=== PATIENT | male | born 1985 ===

== ENCOUNTER 2019-08-07 07:01 | Outpatient (CLI) | payer OTHER, SELFPAY ==
--- NOTE | 2019-08-29 12:18 | SLEEP_ITS ---
Split night sleep study. DATE OF STUDY: 08/07/2019 ORDERING PHYSICIAN: Dr. Tim Espinoza. REASON FOR THIS STUDY: Constant loud snoring, nonrestorative sleep. HISTORY: The patient is a 33-year-old male, 69 inches tall, weighing 215 pounds with a body mass index of 31.7. He has a history of very loud snoring, waking up at night coughing and not feeling rest in the morning. This has been going on for years, but getting worse recently. He has tried [id number]-xug-braemey nasal strips and nasal sprays without improvement. His constant snoring is loud enough that others constantly complain about it. He occasionally awakens from sleep with heartburn and belching. There is a family history with his father having very loud snoring. He rarely has trouble sleeping with a cold. He occasionally gasps for breath at night. He rarely has breathing problems reported to him by others. He frequently sweats excessively at night. He does not notice his heart pounding irregularly at night. He rarely falls asleep during the day never involuntarily, and never while driving. He does not have loss of muscle tone with strong emotion. He does not have daytime difficulties due to excessive sleepiness. 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 He occasionally feels paralyzed on waking or falling asleep and occasionally has vivid dreamlike scenes upon awakening or falling asleep. He is never afraid to go to sleep. He occasionally has nightmares and occasionally remembers his dreams. He rarely has racing thoughts. He rarely feels sad or depressed. He frequently feels anxious. He rarely has muscular tension and rarely notices parts of his body jerking. He rarely kicks at night. He does not have crawly achy feeling in his legs. He occasionally has leg pain at night. He does not have morning jaw pain and does not grind his teeth during sleep. He is not bothered by pain during the day or at night. He occasionally wakes up feeling stiff in the morning. He does not wake up with sore or achy muscles. He rarely wakes up with pain in the neck and spine. He goes to bed at midnight and it varies, how long it takes him to fall asleep, depending on how tired he is. He typically wakes up 2-5 times at night to use the bathroom, change sleeping position and will go back to sleep. He wakes up at 08:00 a.m. Weekend schedule is the same. He does not take naps. A short nap is not refreshing. He feels better in the evening than in the morning. MEDICAL COMORBIDITIES: No chronic medical comorbidities. MEDICATIONS: No chronic medications. HABITS: Tobacco quit 2 years ago. Caffeine, 2 to 3 per day. Alcohol daily, the amount varies. DESCRIPTION OF THE STUDY: On the [place] Sleepiness Scale his score is 4. This was conducted as a split night in-lab study using the B[employer]fer multiple channel system including EOG, EEG, submental EMG, EKG, nasal and oral airflow using thermistors and nasal pressure sensors, chest and abdominal belts, body position data and pulse oximetry. The study was scored using CMS guidelines. During the baseline, the recording time was 277.7 minutes. The sleep time was 179 minutes. Sleep efficiency was 64.5%. Sleep latency was 8.1 minutes. REM latency was delayed, 191.5 minutes. He had 21 awakenings. He spent 90.7 minutes awake after sleep onset. Sleep architecture showed 18.2% stage 1 sleep, 81.6% stage 2 sleep, no stage 3 sleep and 0.3% stage REM only a half of a minute. He spent 75.4% of this portion supine. Sleep was fragmented with shifts between stage wake, stage I, and stage II. The apnea-hypopnea index was 31.5 all obstructive events. He had 1 obstructive apnea in supine REM. He had 16 obstructive apneas, 74 obstructive hypopneas in supine non-REM for an index of 40.1. He had 1 obstructive
== END 2019-08-07 07:02 | disposition home or self-care (01) ==
LOC: ANHCSM 07:03
PROVIDERS: PCP Internal Medicine; Visit Provider Internal Medicine
DX: G47.33 Obstructive sleep apnea (adult) (pediatric) (principal)
CPT/HCPCS: 95811